=== PATIENT | male | born 1960 | race Caucasian/White ===

== ENCOUNTER 2018-09-25 15:44 | Emergency (ER) | payer OTHER ==
[2018-09-25 16:19] VITALS: BP 125/69
[2018-09-25] MEDS ORDERED: Tetracaine 0.5% OPTH.SOL 4 ML* 1 DROP BTL RIGHT EYE ONE (16:34)
[2018-09-25] MEDS ORDERED: Fluorescein Sodium TOPICAL* 1 MG TEST STRIP OPHTHALMIC ONE (16:34)
--- NOTE | 2018-09-25 16:39 | UC ---
Eye Complaint HPI - HPI Summary HPI Summary: 58-year-old male comes in with a chief complaint of right high discomfort discharge and redness. The symptoms started 2 days ago. Feels irritated more towards the nose had a I. Feels like his eyelid is swollen. 4 days ago he was at work and he was grinding and he felt like somebody got in his eye. The symptoms resolved and he had a whole day with no discomfort. 2 days ago the present symptoms started. He does have glasses he does not have contacts. No reported change in vision. - History of Current Complaint Chief Complaint: UCEye Stated Complaint: RIGHT EYE CONCERN Time Seen by Provider: 09/25/18 16:28 Pain Intensity: 4 - Allergies/Home Medications Allergies/Adverse Reactions: Allergies Allergy/AdvReac Type Severity Reaction Status Date / Time No Known Allergies Allergy Verified 09/25/18 16:19 PMH/Surg Hx/FS Hx/Imm Hx Previously Healthy: Yes - Surgical History Surgical History: Yes Surgery Procedure, Year, and Place: hernia repair 1964. appy 1969. skin graft 1974, right leg d/t dog bite. hernia repair 1981 - Family History Known Family History: Positive: Non-Contributory - Social History Alcohol Use: None Substance Use Type: None Smoking Status (MU): Never Smoked Tobacco Review of Systems All Other Systems Reviewed And Are Negative: Yes Constitutional: Positive: Negative Skin: Positive: Negative Eyes: Positive: Drainage, Eye Redness ENT: Positive: Negative Respiratory: Positive: Negative Cardiovascular: Positive: Negative Gastrointestinal: Positive: Negative Motor: Positive: Negative Neurovascular: Positive: Negative Musculoskeletal: Positive: Negative Neurological: Positive: Negative Psychological: Positive: Negative Is Patient Immunocompromised?: No Physical Exam Triage Information Reviewed: Yes Appearance: Well-Appearing, No Pain Distress, Well-Nourished Vital Signs: Initial Vital Signs Temp 98.3 F 09/25/18 16:15 Pulse 63 09/25/18 16:15 Resp 16 09/25/18 16:15 BP 125/69 09/25/18 16:15 Pulse Ox 97 09/25/18 16:15 Vital Signs Reviewed: Yes Eyes: Positive: Conjunctiva Inflamed - RT, Discharge - RT, Other: - PERRLA/EOMI I did not see any foreign body on the eye examination with fluorescein stain. Patient does have a 1 mm narrow brown area on his iris at approximately 4:00 looking directly at it. It is lined up with the rest of the iris and I'm unsure if this is partly iris or if this could be a foreign body. I did not see any corneal abrasion. ENT: Negative: Nasal drainage Neck: Positive: Supple Respiratory: Positive: No respiratory distress Musculoskeletal Exam: Normal Musculoskeletal: Positive: Strength Intact, ROM Intact Neurological Exam: Normal Neurological: Positive: Alert, Muscle Tone Normal Psychological Exam: Normal Psychological: Positive: Age Appropriate Behavior Skin Exam: Normal Eye Complaint Course/Dx - Course Course Of Treatment: I did not see any foreign body on examination of the eye. I also did not see any corneal abrasion. However the brown area on the iris the patient does not know if he's had that for over or if that is new. I let the patient know that he needs to get follow-up with ophthalmology for further evaluation. With the grinding accident at work 4 days ago preceding the symptoms by 2 days does make me concerned about the possibility of a foreign body. - Differential Dx/Diagnosis Provider Diagnosis: Pain, eye, right, Conjunctivitis, right eye Discharge - Sign-Out/Discharge Documenting (check all that apply): Patient Departure All imaging exams completed and their final reports reviewed: No Studies - Discharge Plan Condition: Stable Disposition: HOME Prescriptions: Tobramycin 0.3% OPHTH.NEELIMA* 1 drop RIGHT EYE Q4H #1 btl Patient Education Materials: Eye Pain (ED), Conjunctivitis (ED) Referrals: [facility] [Provider Group] Additional Instructions: FOLLOW UP WITH YOUR VETERINARY MEDICINE DOCTOR FOR THE POSSIBILITY OF A FOREIGN BODY IN YOUR RIGHT EYE. GET RECHECKED SOONER IF YOUR CONDITION WORSENS OR ANY QUESTIONS OR CONCERNS. - Billing Disposition and Condition Condition: STABLE Disposition: Home
== END 2018-09-25 17:01 | disposition home or self-care (01) ==
LOC: UCCORT 15:44
DX: H10.9 Unspecified conjunctivitis (principal); H57.11 Ocular pain, right eye
CPT/HCPCS: 99202; A9270-GY; G0463